=== PATIENT | female | born 1965 | race Hispanic/Latino ===

== ENCOUNTER 2019-03-05 23:33 | Emergency (ER) | payer SELFPAY ==
[2019-03-05] MEDS ORDERED: LIDOCAINE VISCOUS 2% SOLN 15 ML UDC ONE (23:57)
--- NOTE | 2019-03-06 02:05 | EDPHYS ---
Physician Documentation [facility] Name: Liseth Patel Age: 53 yrs Sex: Female : 1965 Arrival Date: 03/05/2019 Time: 23:33 Bed 28 Private MD: ED Physician Daniel Merrill HPI: 03/06 02:09 This 53 yrs old Female presents to ER via Ambulatory with complaints of pm1 Foreign Body In Ear - left. 02:09 The patient presents with a foreign body sensation, presumably from an insect, pain. pm1 The complaints affect the left ear. Onset: The symptoms/episode began/occurred just prior to arrival. Modifying factors: The symptoms are alleviated by nothing, the symptoms are aggravated by nothing. Associated signs and symptoms: The patient has no apparent associated signs or symptoms. Severity of symptoms: in the emergency department the symptoms are unchanged. The patient has not experienced similar symptoms in the past. The patient has not recently seen a physician. SURGERY AID: 02:14 lmp unknown mg2 Historical: - Allergies: 03/05 23:44 No Known Allergies; ak1 - Home Meds: 23:44 None [Active]; ak1 - PMHx: 23:44 None; ak1 - PSHx: 23:44 ; ak1 - Immunization history:: Adult Immunizations unknown. - Social history:: Smoking status: Patient/guardian denies using tobacco. - Ebola Screening: : No symptoms or risks identified at this time. ROS: 03/06 02:09 Constitutional: Negative for fever, chills, and weight loss, Eyes: Negative for injury, pm1 pain, redness, and discharge, Neck: Negative for injury, pain, and swelling, Cardiovascular: Negative for chest pain, palpitations, and edema, Respiratory: Negative for shortness of breath, cough, wheezing, and pleuritic chest pain, Abdomen/GI: Negative for abdominal pain, nausea, vomiting, diarrhea, and constipation, Back: Negative for injury and pain. MS/Extremity: Negative for injury and deformity, Skin: Negative for injury, rash, and discoloration, Neuro: Negative for headache, weakness, numbness, tingling, and seizure. ENT: Positive for ear pain, foreign body sensation. Exam: 02:09 Constitutional: This is a well developed, well nourished patient who is awake, alert, pm1 and in no acute distress. Head/Face: Normocephalic, atraumatic. Eyes: Pupils equal round and reactive to light, extra-ocular motions intact. Lids and lashes normal. Conjunctiva and sclera are non-icteric and not injected. Cornea within normal limits. Periorbital areas with no swelling, redness, or edema. 02:09 Neck: Trachea midline, no thyromegaly or masses palpated, and no cervical lymphadenopathy. Supple, full range of motion without nuchal rigidity, or vertebral point tenderness. No Meningismus. Chest/axilla: Normal chest wall appearance and motion. Nontender with no deformity. No lesions are appreciated. Cardiovascular: Regular rate and rhythm with a normal S1 and S2. No gallops, murmurs, or rubs. Normal PMI, no JVD. No pulse deficits. Respiratory: Lungs have equal breath sounds bilaterally, clear to auscultation and percussion. No rales, rhonchi or wheezes noted. No increased work of breathing, no retractions or nasal flaring. Abdomen/GI: Soft, non-tender, with normal bowel sounds. No distension or tympany. No guarding or rebound. No evidence of tenderness throughout. Back: No spinal tenderness. No costovertebral tenderness. Full range of motion. Skin: Warm, dry with normal turgor. Normal color with no rashes, no lesions, and no evidence of cellulitis. MS/ Extremity: Pulses equal, no cyanosis. Neurovascular intact. Full, normal range of motion. 02:09 ENT: External ear(s): are unremarkable, Ear canal(s): foreign body, an insect, in the left external ear canal, TM's: rupture, is not appreciated, bilaterally. 02:09 Neuro: Orientation: is normal, Motor: is normal, moves all fours. Vital Signs: 03/05 23:44 BP 132 / 85; Pulse 83; Resp 18; Temp 98; Pulse Ox 98% on R/A; Weight 86.18 kg (R); ak1 Height 5 ft. 7 in. (170.18 cm) (R); Pain 10/; 03/06 02:00 BP 123 / 78; Pulse 80; Resp 17; Pulse Ox 100% on R/A; Pain 2/10; mg2 03/05 23:44 Body Mass Index 29.76 (86.18 kg, 170.18 cm) ak1 Procedures: 02:07 Foreign Body Removal: an insect, from the left ear canal, by using alligator clamps, pm1 normal saline irrigation, The patient tolerated the removal well, majority of insect removed from ear. Section of insect against tympanic membrane not attempted due to risk of perforating ear drum. Patient reports improvement in hearing after removal of most of cockroach. MDM: 03/05 23:46 Patient medically screened. pm1 03/06 02:04 Data reviewed: vital signs. Data interpreted: Pulse oximetry: on room air is 98 %. pm1 Interpretation: normal. Counseling: I had a detailed discussion with the patient and/or guardian regarding: the historical points, exam findings, and any diagnostic results supporting the discharge/admit diagnosis, the need for outpatient follow up, for definitive care, an ENT specialist, to return to the emergency department if symptoms worsen or persist or if there are any questions or concerns that arise at home. Administered Medications: 03/05 23:54 Drug: Viscous Lidocaine Liquid (4 %) 5 ml {Note: to the left ear.} Route: Mucous mg2 Membrane; 03/06 02:13 Follow up: Response: No adverse reaction; Marked relief of symptoms mg2 02:13 Drug: [place] 5 mg-325 mg 1 tabs Route: PO; mg2 02:13 Follow up: Response: No adverse reaction; Medication administered at discharge. mg2 Disposition: 04:56 Co-signature as Attending Physician, Daniel Merrill MD. pk Disposition: 03/06/19 02:04 Discharged to Home. Impression: Foreign body in left ear - insect. - Condition is Stable. - Discharge Instructions: Ear Foreign Body. - Prescriptions for Augmentin 875- 125 mg Oral Tablet - take 1 tablet by ORAL route every 12 hours for 10 days; 20 tablet. - Medication Reconciliation Form, Thank You Letter, Antibiotic Education, Prescription Opioid Use form. - Follow up: Emergency Department; When: As needed; Reason: Worsening of condition. Follow up: Private Physician; When: 2 - 3 days; Reason: Recheck today's complaints, Continuance of care, Re-evaluation by your physician. - Problem is new. - Symptoms have improved. Signatures: Daniel Merrill MD MD pkl Elen Deras RN RN ak1 Placido Villavicencio NP GARDENING SUPERVISOR pm1 Erick Barcenas, RN RN mg2 Corrections: (The following items were deleted from the chart) 02:15 02:04 03/06/2019 02:04 Discharged to Home. Impression: Foreign body in left ear - mg2 insect. Condition is Stable. Forms are Medication Reconciliation Form, Thank You Letter, Antibiotic Education, Prescription Opioid Use. Follow up: Emergency Department; When: As needed; Reason: Worsening of condition. Follow up: Private Physician; When: 2 - 3 days; Reason: Recheck today's complaints, Continuance of care, Re-evaluation by your physician. Problem is new. Symptoms have improved. pm1
--- NOTE | 2019-03-06 02:05 | ER ---
Nurse's Notes [facility] Name: Liseth Patel Age: 53 yrs Sex: Female : 1965 Arrival Date: 03/05/2019 Time: 23:33 Bed 28 Private MD: Diagnosis: Foreign body in left ear-insect Presentation: 03/05 23:43 Presenting complaint: Patient states: woke up with pain to left ear. pt stated she can ak1 feel insect moving in ear. Transition of care: patient was not received from another setting of care. Onset of symptoms was March 05, 2019. Risk Assessment: Do you want to hurt yourself or someone else? Patient reports no desire to harm self or others. Initial Sepsis Screen: Does the patient meet any 2 criteria?. Care prior to arrival: None. 23:43 Method Of Arrival: Ambulatory ak1 23:43 Acuity: ANTONI 4 ak1 23:54 Initial Sepsis Screen: Does the patient have a suspected source of infection? No. mg2 Patient's initial sepsis screen is negative. Triage Assessment: 23:44 General: Appears uncomfortable, Behavior is cooperative, anxious. 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 - Social history:: Smoking status: Patient/guardian denies using tobacco. - Ebola Screening: : No symptoms or risks identified at this time. Screenin:45 Abuse screen: Denies threats or abuse. Denies injuries from another. Nutritional ak1 screening: No deficits noted. Tuberculosis screening: No symptoms or risk factors identified. Fall Risk None identified. Assessment: 23:51 General: Appears uncomfortable, Behavior is calm, cooperative. Pain: Complains of pain mg2 in left ear Pain does not radiate. Pain currently is 8 out of 10 on a pain scale. Quality of pain is described as aching, Pain began suddenly, 30 min ago. Is intermittent. Neuro: Level of Consciousness is awake, alert, obeys commands, Oriented to person, place, time, situation. Cardiovascular: Capillary refill < 3 seconds Patient's skin is warm and dry. Respiratory: Airway is patent Respiratory effort is even, unlabored, Respiratory pattern is regular, symmetrical. GI: No signs and/or symptoms were reported involving the gastrointestinal system. : No signs and/or symptoms were reported regarding the genitourinary system. EENT: Ear canal w/ foreign body noted from left ear. Derm: Skin is intact, is healthy with good turgor, Skin is pink, warm \T\ dry. normal. Musculoskeletal: Circulation, motion, and sensation intact. Capillary refill < 3 seconds. 03/06 02:15 Reassessment: Patient appears in no apparent distress at this time. Patient is alert, mg2 oriented x 3, equal unlabored respirations, skin warm/dry/pink. Vital Signs: 03/05 23:44 BP 132 / 85; Pulse 83; Resp 18; Temp 98; Pulse Ox 98% on R/A; Weight 86.18 kg (R); ak1 Height 5 ft. 7 in. (170.18 cm) (R); Pain 10/10; 03/06 02:00 BP 123 / 78; Pulse 80; Resp 17; Pulse Ox 100% on R/A; Pain 2/10; mg2 03/05 23:44 Body Mass Index 29.76 (86.18 kg, 170.18 cm) ak1 ED Course: 03/05 23:33 Patient arrived in ED. am2 23:42 Placido Villavicencio NP is PHCP. pm1 23:42 Daniel Merrill MD is Attending Physician. pm1 23:44 Triage completed. ak1 23:44 Arm band placed on Patient placed in an exam room, on a stretcher, Patient notified of ak1 wait time. 23:51 Erick Barcenas, GREG is Primary Nurse. mg2 23:53 Patient has correct armband on for positive identification. Pulse ox on. NIBP on. Door mg2 closed. 23:53 Patient did not have IV access during this emergency room visit. mg2 03/06 02:05 Assist provider with foreign body removal of an insect from left ear canal. using mg2 alligator clamps, Set up for procedure. Performed by Placido Villavicencio NP Patient tolerated well. Administered Medications: 03/05 23:54 Drug: Viscous Lidocaine Liquid (4 %) 5 ml {Note: to the left ear.} Route: Mucous mg2 Membrane; 03/06 02:13 Follow up: Response: No adverse reaction; Marked relief of symptoms mg2 02:13 Drug: [place] 5 mg-325 mg 1 tabs Route: PO; mg2 02:13 Follow up: Response: No adverse reaction; Medication administered at discharge. mg2 Outcome: 02:04 Discharge ordered by . pm1 02:13 Discharged to home ambulatory, with family. mg2 02:13 Condition: stable 02:13 Discharge instructions given to patient, family, Instructed on discharge instructions, follow up and referral plans. medication usage, Demonstrated understanding of instructions, follow-up care, medications, Prescriptions given X 1. 02:15 Patient left the ED. mg2 Signatures: Elen Deras RN RN ak1 Placido Villavicencio, EVELYNE MINES INSPECTOR pm1 Tamra Brunson am2 Erick Barcenas RN RN mg2
[2019-03-06] MEDS ORDERED: HYDROCODONE/APAP 5/325 MG TAB ONE (02:21)
== END 2019-03-06 02:15 | disposition home or self-care (01) ==
LOC: ER 23:33
PROC: 09C47ZZ Extirpation of Matter from Left External Auditory Canal, Via Natural or Artificial Opening (ICD-10-PCS; principal; 2019-03-05)
DX: T16.2XXA Foreign body in left ear, initial encounter (principal); X58.XXXA Exposure to other specified factors, initial encounter
CPT/HCPCS: 99284